=== PATIENT | male | born 1940 | race Caucasian/White ===

== ENCOUNTER 2022-01-03 10:44 | Day surgery (SDC) | payer OTHER ==
[~2022-01-03] VITALS: Ht 160 cm; Wt 49.9 kg
[2022-01-03] MEDS ORDERED: PROPOFOL 200MG/ 20ML VIAL (DIPRIVAN) IV ONE (10:45)
[2022-01-03] MEDS ORDERED: IOHEXOL 300 mgI/mL, 50 mL INFUS..BTL IV ONE (10:45)
[2022-01-03] MEDS ORDERED: NS 1000 ML IV.SOLN IV ONE (10:45)
[2022-01-03] MEDS ORDERED: SUGAMMADEX SODIUM 200 MG/2 ML VIAL IV ONE (10:45)
[2022-01-03] MEDS ORDERED: DESFLURANE 15 MIN GAS INH ONE (10:45)
[2022-01-03] MEDS ORDERED: ROCURONIUM BROMIDE 10 MG/ML (ZEMURON) IV ONE (10:45)
[2022-01-03] MEDS ORDERED: LIDOCAINE 2%, 20 ML MDV INJ ONE (10:45)
[2022-01-03] MEDS ORDERED: ONDANSETRON HCL 4 MG/2 ML VIAL IVP ONE (10:45)
[2022-01-03] MEDS ORDERED: INDOMETHACIN 50 MG SUPP.RECT RC ONE (13:00)
[2022-01-03] MEDS ORDERED: hydrALAZINE HCL 20 MG/ML VIAL IVP PRN (14:30)
[2022-01-03] MEDS ORDERED: NACL 0.9% 1,000 ML IV SCH (14:30)
[2022-01-03] MEDS ORDERED: HYDROmorphone 1 MG/ML INJ. CARTRIDGE IVP PRN ×3 (14:30)
[2022-01-03] MEDS ORDERED: MEPERIDINE HCL/PF 25 MG/ML DISP.SYRIN IVP PRN (14:30)
[2022-01-03] MEDS ORDERED: ONDANSETRON HCL 4 MG/2 ML VIAL IVP PRN (14:30)
[2022-01-03] MEDS ORDERED: hydrALAZINE HCL 20 MG/ML VIAL ONE (15:55)
[2022-01-03 17:45] VITALS: BP_SYST 170
== END 2022-01-03 18:55 | disposition home or self-care (01) ==
LOC: SDS 10:44 → SMU 10:49 → SDS 18:55
PROVIDERS: ATTEND Internal Medicine
DX: K80.50 Calculus of bile duct without cholangitis or cholecystitis without obstruction (principal); E11.9 Type 2 diabetes mellitus without complications; E78.5 Hyperlipidemia, unspecified; Z87.891 Personal history of nicotine dependence; Z20.822 Contact with and (suspected) exposure to COVID-19; Z79.899 Other long term (current) drug therapy
CPT/HCPCS: 43275; 82962; 36415; 93005; 71045; 74328; 82948; 87426; C1748; J3490; J0360; J2001; J2405; J2704; Q9967; J7030; 43235; 43274; 76000